=== PATIENT | female | born 1935 | race Caucasian/White ===

== ENCOUNTER 2022-10-09 13:54 | Emergency (ER) | payer MEDICARE, SELFPAY ==
--- NOTE | ~2022-10-09 | XR_ITS ---
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 RESULT: Lines, tubes, and devices: None. Lungs and pleura: No focal consolidation. No pneumothorax or effusion. Senescent/emphysematous brush e. Cardiomediastinal silhouette: Mitral annulus and aortic arch calcification. Other: No acute osseous or upper abdominal finding. IMPRESSION: No acute cardiopulmonary process. Reviewed, dictated and finalized at location K. 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
--- NOTE | 2022-10-09 14:00 | ECG_ITS ---
Measurements Intervals Goodman Rate: 59 P: 64 IA: 154 QRS: -54 QRSD: 96 T: 16 QT: 430 QTc: 427 Interpretive Statements SINUS BRADYCARDIA LEFT ANTERIOR FASCICULAR BLOCK T WAVE ABNORMALITY IN LATERAL LEADS- CONSIDER ISCHEMIA BASELINE ARTIFACT- I, II, AVR, AVL ABNORMAL ECG NO PREVIOUS ECG AVAILABLE FOR COMPARISON Electronically Signed On 10-10-2022 7:35:16 [employer] by Brandan Saini D.O.
[2022-10-09 14:05] VITALS: BP 170/81; PULSE 58; RESP 18; TEMP 36.2; O2SAT 98
[2022-10-09 14:13] LABS: Basophils Percent Auto 0.4 % (0.2-1.2); Eosinophils Absolute Auto 0.2 K/mm3 (0-0.3); Eosinophils Percent Auto 3.1 % (0-4.4); Hematocrit 41.9 % (37.0-47.0); Hemoglobin 13.7 g/dL (12.0-15.0); Immature Granulocyte Absolute 0.02 K/mm3 (0.00-0.031); Immature Granulocyte Percent A 0.3 % (0-0.5); Lymphocytes Absolute Auto 1.05 K/mm3 (0.9-3.2); Lymphocytes Percent Auto 15.5 % (18.3-44.2); Mean Corpuscular HGB Conc 32.7 g/dl (32-36); Mean Corpuscular Hemoglobin 31.9 pg (26-34); Mean Corpuscular Volume 97.7 fl (80-100); Mean Platelet Volume 10.4 fl (7.4-10.4); Monocytes Absolute Auto 0.8 K/mm3 (0.1-0.6); Monocytes Percent Auto 11.5 % (2.6-8.5); Neutrophils Absolute Auto 4.7 K/mm3 (1.3-6.7); Neutrophils Percent Auto 69.2 % (45.5-73.1); Platelet Count Result 248 k/mm3 (150-375); Red Blood Count 4.29 M/mm3 (4.2-5.4); Red Cell Distribution Width 14.4 % (11.5-14.5); White Blood Count 6.8 K/mm3 (4.5-10.0)
[2022-10-09 14:24] LABS: Alanine Aminotransferase 28 U/L (6-35); Albumin Level 4.4 g/dL (3.5-5.1); Alkaline Phosphatase 83 U/L (38-126); Anion Gap 7 mmol/L (8-16); Aspartate Amino Transferase 44 U/L (14-36); Bilirubin,Total 0.5 mg/dL (0.2-1.3); Blood Urea Nitrogen 16 mg/dL (7-17); Calcium 8.9 mg/dL (8.4-10.2); Carbon Dioxide 31 mmol/L (22-30); Chloride 102 mmol/L (98-107); Estimated CRCL calculation 46 ml/min; Estimated Glomerular Filt Rate > 60; Glucose 117 mg/dL (65-110); Lipase 74 U/L (23-300); Potassium 4.1 mmol/L (3.4-5.0); Sodium 140 mmol/L (137-145)
[2022-10-09 14:25] LABS: Partial Thromboplastin Time 29.1 SECONDS (22.3-36.8)
[2022-10-09 14:48] VITALS: PULSE 65
[2022-10-09 14:50] LABS: Glucose Point of Care 117 mg/dl (65-105)
[2022-10-09] MEDS: MORPHINE SULFATE (*CRX) 4 MG/ML INJ (14:50)
--- NOTE | 2022-10-09 14:53 | PC.NURSE ---
Pt unresponsive, very weak pulse, lips and extremities blue, POA and family at bedside, POA said pt is DRN and do not want anything done. Pt at 1453, Dr Mccormick at bedside.
--- NOTE | 2022-10-09 14:57 | ED.CHESTPAIN ---
HPI - Chest Pain General Chief Complaint: Chest Pain Stated Complaint: Chest Pain Time Seen by Provider: 10/09/22 14:47 History of Present Illness HPI narrative: Patient is an 87-year-old female who presents ER with chest pain. Son reports patient began having chest discomfort with exertion today. Patient was brought back from waiting room after becoming unresponsive. Patient with very faint pulse. Radiology family at bedside and reports that patient is a DO NOT RESUSCITATE and no extreme measures to be undertaken. Patient with agonal breathing and mottling of the skin. No history of cardiac disease. Related Data Allergies Allergy/AdvReac Type Severity Reaction Status Date / Time No Known Allergies Allergy Verified 10/09/22 14:10 Review of Systems Review of Systems: ROS unobtainable: Yes unobtainable due to medical condition [facility] Past Medical History Medical History (Updated 10/09/22 @ 15:04 by Chin Mccormick MD) Dementia Surgical History Surgical History (Updated 10/09/22 @ 15:04 by Chin Mccormick MD) Surgical history unknown Exam Narrative: GENERAL: Unresponsive and mottled appearing.. HEAD: Normocephalic, atraumatic. EYES: Pupils fixed and dilated. ENT: Mucous membranes moist. CHEST: Agonal respirations without abnormal lung sounds.. HEART: Faint bradycardic pulse centrally. ABDOMEN: Soft, nontender, nondistended. EXTREMITIES: No deformity. No edema. SKIN: Warm, dry, mottled. NEURO: GCS 3 Course Course Emergency Course: Pulse 1, bedside ultrasound showed trivial cardiac motion. Discussed that patient felt to have serious [place] and family reports that she is to have no resuscitative measures undertaken. Patient pronounced at 1453. FLOOR CARE TECHNICIAN for patient's PCP contacted and will sign the certificate. Reevaluation(s) Reevaluation #1: Patient in asystole and time of declared at 1453. Patient's son at bedside. Date: 10/09/22 Time: 14:57 Vital Signs Vital signs: Vital Signs Temperature 97.1 F L 10/09/22 14:05 Pulse Rate 58 L 10/09/22 14:05 Respiratory Rate 18 10/09/22 14:05 Blood Pressure 170/81 H 10/09/22 14:05 Pulse Oximetry 98 10/09/22 14:05 Oxygen Delivery Room Air 10/09/22 14:05 Temperature 97.1 F L 10/09/22 14:05 Pulse Rate 65 10/09/22 14:48 Respiratory Rate 18 10/09/22 14:05 Blood Pressure 170/81 H 10/09/22 14:05 Pulse Oximetry 98 10/09/22 14:05 Oxygen Delivery Room Air 10/09/22 14:05 MDM - Chest Pain Lab Data 10/09/22 14:05 10/09/22 14:05 Labs: Lab Results 10/09/22 10/09/22 10/09/22 Range/Units 14:05 14:05 14:05 WBC 6.8 (4.5-10.0) K/mm3 RBC 4.29 (4.2-5.4) M/mm3 Hgb 13.7 (12.0-15.0) g/dL Hct 41.9 (37.0-47.0) % MCV 97.7 (80-100) fl MCH 31.9 (26-34) pg MCHC 32.7 (32-36) g/dl RDW 14.4 (11.5-14.5) % Plt Count 248 (150-375) k/mm3 MPV 10.4 (7.4-10.4) fl Immature Gran % (Auto) 0.3 (0-0.5) % Neut % (Auto) 69.2 (45.5-73.1) % Lymph % (Auto) 15.5 L (18.3-44.2) % Hood % (Auto) 11.5 H (2.6-8.5) % Eos % (Auto) 3.1 (0-4.4) % Baso % (Auto) 0.4 (0.2-1.2) % Lymph # (Auto) 1.05 (0.9-3.2) K/mm3 Hood # (Auto) 0.8 H (0.1-0.6) K/mm3 Eos # (Auto) 0.2 (0-0.3) K/mm3 Baso # (Auto) 0.0 (0.0-0.1) K/mm3 Abs Immat Gran (auto) 0.02 (0.00-0.031) K/mm3 Absolute Neuts (auto) 4.7 (1.3-6.7) K/mm3 Absolute Nucleated RBC 0.0 (0.0-0.012) K/mm3 Nucleated RBC % 0.0 (0.0-0.2) % PT 13.0 (11.1-14.7) Seconds INR 1.0 APTT 29.1 (22.3-36.8) SECONDS Sodium 140 (137-145) mmol/L Potassium 4.1 (3.4-5.0) mmol/L Chloride 102 (98-107) mmol/L Carbon Dioxide 31 H (22-30) mmol/L Anion Gap 7 L (8-16) mmol/L BUN 16 (7-17) mg/dL Creatinine 0.80 (0.7-1.0) mg/dL Estim Creat Clear Calc 46 ml/min Estimated GFR > 60 (59 - ) Glucose 117 H (65-110) mg/dL POC Cap
== END 2022-10-09 16:00 | disposition expired ==
PROVIDERS: Emergency Provider Emergency Medicine; PCP Family Medicine
DX: I46.9 Cardiac arrest, cause unspecified (principal); R00.1 Bradycardia, unspecified; F03.90 Unspecified dementia, unspecified severity, without behavioral disturbance, psychotic disturbance, mood disturbance, and anxiety
CPT/HCPCS: 36415; 71046; 80053; 82948; 83690; 84484; 85025; 85610; 85730; 93005; 96374; 99284; J2270